=== PATIENT | male | born 1950 | race Caucasian/White ===

== ENCOUNTER 2017-12-07 12:56 | Observation (INO) | payer MEDICARE ==
[2017-12-07] MEDS ORDERED: NITROGLYCERIN OINT 1 INCH/GM PACKET TOPICAL STA (13:15)
--- NOTE | 2017-12-07 13:20 | ED ---
General Adult HPI - General Chief complaint: Chest Pain Stated complaint: Chest pressure Time Seen by Provider: 12/07/17 13:00 Source: patient, RN notes reviewed Mode of arrival: EMS Limitations: no limitations - History of Present Illness Initial comments: This a 67-year-old male who presents emergency Department with a history of hypertension high cholesterol and diabetes. Patient's also had bypass surgery. Patient comes in today with complaining of chest pain patient states it's a pressure sensation in his chest it does not radiate anywhere but it makes him diaphoretic short of breath. Patient states she's had 3 episodes of this chest pain and each episode lasted approximately 20 minutes. Patient states currently chest pain-free. Patient denies any recent fever chills or cough. Patient denies a history of smoking. Patient denies any abdominal pain patient denies any nausea vomiting or diarrhea. Patient denies any lightheadedness or dizziness. Patient denies headache patient denies numbness weakness. Leg swelling or calf pain. - Related Data Home Medications Medication Instructions Recorded Confirmed Aspirin EC [Ecotrin Low Dose] 81 mg PO DAILY 12/07/17 12/07/17 Colchicine 0.6 mg PO DAILY 12/07/17 12/07/17 Fish Oil/Dha/Epa [Fish Oil 1,200 1 cap PO DAILY 12/07/17 12/07/17 mg Fish Oil] L.acidoph,Paracmegi, B.lactis 1 cap PO DAILY 12/07/17 12/07/17 [Probiotic] Lisinopril [Zestril] 10 mg PO DAILY 12/07/17 12/07/17 Metoprolol Tartrate [Lopressor] 50 mg PO BID 12/07/17 12/07/17 Multivitamins, Thera [Multivitamin 1 tab PO DAILY 12/07/17 12/07/17 (formulary)] Omeprazole [PriLOSEC] 10 mg PO BID 12/07/17 12/07/17 Simvastatin [Zocor] 20 mg PO HS 12/07/17 12/07/17 Warfarin Sodium [Coumadin] 2.5 mg PO SUMOTUTHFR 12/07/17 12/07/17 Warfarin Sodium [Coumadin] 3.75 mg PO WESA 12/07/17 12/07/17 metFORMIN HCL 1,000 mg PO BID 12/07/17 12/07/17 valACYclovir [Valtrex] 250 mg PO DAILY 12/07/17 12/07/17 Allergies Allergy/AdvReac Type Severity Reaction Status Date / Time Iodine and Iodide Containing Allergy Rash/Hives Verified 12/07/17 13:14 Produc Review of Systems ROS Statement: Those systems with pertinent positive or pertinent negative responses have been documented in the HPI. ROS Other: All systems not noted in ROS Statement are negative. Past Medical History Past Medical History: Atrial Fibrillation, Diabetes Mellitus, GERD/Reflux, Hyperlipidemia, Hypertension Additional Past Medical History / Comment(s): Gout History of Any Multi-Drug Resistant Organisms: None Reported Past Surgical History: Cardiac Ablation, Cholecystectomy, Coronary Bypass/CABG, Orthopedic Surgery Additional Past Surgical History / Comment(s): CABG 2011 Past Psychological History: No Psychological Hx Reported Smoking Status: Never smoker Past Alcohol Use History: Occasional Past Drug Use History: None Reported General Exam - General Exam Comments Initial Comments: GENERAL: Patient is well-developed and well-nourished. Patient is nontoxic and well- hydrated and is in mild distress. ENT: Neck is soft and supple. No significant lymphadenopathy is noted. Oropharynx is clear. Moist mucous membranes. Neck has full range of motion without eliciting any pain. EYES: The sclera were anicteric and conjunctiva were pink and moist. Extraocular movements were intact and pupils were equal round and reactive to light. Eyelids were unremarkable. PULMONARY: Unlabored respirations. Good breath sounds bilaterally. No audible rales rhonchi or wheezing was noted. CARDIOVASCULAR: There is a regular rate and rhythm without any murmurs gallops or rubs. ABDOMEN: Soft and nontender with normal bowel sounds. No palpable organomegaly was noted. There is no palpable pulsatile mass. SKIN: Skin is clear with no lesions or rashes and otherwise unremarkable. NEUROLOGIC: Patient is alert and oriented x3. Cranial nerves II through XII are grossly intact. Motor and sensory are also intact. Normal speech, volume and content. Symmetrical smile. MUSCULOSKELETAL: Normal extremities with adequate strength and full range of motion. No lower extremity swelling or edema. No calf tenderness. LYMPHATICS: No significant lymphadenopathy is noted PSYCHIATRIC: Normal psychiatric evaluation. Normal interpersonal interactions appears functionally intact in deals appropriately with others. No signs of depression. No signs of anxiety. Limitations: no limitations Course Vital Signs 12/07/17 12:58 Temperature 97.9 F Pulse Rate 78 Respiratory 16 Rate Blood Pressure 177/94 O2 Sat by Pulse 97 Oximetry Medical Decision Making - Medical Decision Making EKG shows normal sinus rhythm at 80 bpm MI interval 280 QRS is 86 Q-T intervals 346 QTC is 399. Patient's EKG shows no ST segment elevation or depression or T wave abnormalities are noted. Chest x-ray shows no acute abnormality. Patient remained chest pain-free throughout the ED course. Patient was exhibiting signs and symptoms of unstable angina I did not start him on heparin because he started and Coumadin and therapeutic. I spoke with Dr. Lane she agreed to admit the patient admitted the patient wrote admitting orders. I consult cardiology. - Lab Data Result diagrams: 12/07/17 13:10 12/07/17 13:10 Lab Results 12/07/17 12/07/17 12/07/17 Range/Units 13:10 13:10 13:10 WBC 6.9 (3.8-10.6) k/uL RBC 4.86 (4.30-5.90) m/uL Hgb 15.0 (13.0-17.5) gm/dL Hct 43.2 (39.0-53.0) % MCV 88.8 (80.0-100.0) fL MCH 30.9 (25.0-35.0) pg MCHC 34.8 (31.0-37.0) g/dL RDW 13.6 (11.5-15.5) % Plt Count 210 (150-450) k/uL Neutrophils % 66 % Lymphocytes % 21 % Monocytes % 6 % Eosinophils % 4 % Basophils % 1 % Neutrophils # 4.6 (1.3-7.7) k/uL Lymphocytes # 1.4 (1.0-4.8) k/uL Monocytes # 0.4 (0-1.0) k/uL Eosinophils # 0.3 (0-0.7) k/uL Basophils # 0.1 (0-0.2) k/uL PT (9.0-12.0) sec INR (<1.2) APTT (22.0-30.0) sec Sodium 139 (137-145) mmol/L Potassium 4.6 (3.5-5.1) mmol/L Chloride 109 H (98-107) mmol/L Carbon Dioxide 19 L (22-30) mmol/L Anion Gap 11 mmol/L BUN 26 H (9-20) mg/dL Creatinine 0.80 (0.66-1.25) mg/dL Est GFR (CKD-EPI)AfAm >90 (>60 ml/min/1.73 sqM) Est GFR (CKD-EPI)NonAf >90 (>60 ml/min/1.73 sqM) Glucose 189 H (74-99) mg/dL Calcium 9.4 (8.4-10.2) mg/dL Magnesium 1.5 L (1.6-2.3) mg/dL Total Bilirubin 0.6 (0.2-1.3) mg/dL AST 30 (17-59) U/L ALT 37 (21-72) U/L Alkaline Phosphatase 49 (38-126) U/L Total Creatine Kinase 112 (55-170) U/L CK-MB (CK-2) 1.7 (0.0-2.4) ng/mL CK-MB (CK-2) Rel Index 1.5 Troponin I <0.012 (0.000-0.034) ng/mL Total Protein 6.0 L (6.3-8.2) g/dL Albumin 3.8 (3.5-5.0) g/dL 12/07/17 Range/Units 13:10 WBC (3.8-10.6) k/uL RBC (4.30-5.90) m/uL Hgb (13.0-17.5) gm/dL Hct (39.0-53.0) % MCV (80.0-100.0) fL MCH (25.0-35.0) pg MCHC (31.0-37.0) g/dL RDW (11.5-15.5) % Plt Count (150-450) k/uL Neutrophils % % Lymphocytes % % Monocytes % % Eosinophils % % Basophils % % Neutrophils # (1.3-7.7) k/uL Lymphocytes # (1.0-4.8) k/uL Monocytes # (0-1.0) k/uL Eosinophils # (0-0.7) k/uL Basophils # (0-0.2) k/uL PT 24.5 H (9.0-12.0) sec INR 2.7 H (<1.2) APTT 35.0 H (22.0-30.0) sec Sodium (137-145) mmol/L Potassium (3.5-5.1) mmol/L Chloride (98-107) mmol/L Carbon Dioxide (22-30) mmol/L Anion Gap mmol/L BUN (9-20) mg/dL Creatinine (0.66-1.25) mg/dL Est GFR (CKD-EPI)AfAm (>60 ml/min/1.73 sqM) Est GFR (CKD-EPI)NonAf (>60 ml/min/1.73 sqM) Glucose (74-99) mg/dL Calcium (8.4-10.2) mg/dL Magnesium (1.6-2.3) mg/dL Total Bilirubin (0.2-1.3) mg/dL AST (17-59) U/L ALT (21-72) U/L Alkaline Phosphatase (38-126) U/L Total Creatine Kinase (55-170) U/L CK-MB (CK-2) (0.0-2.4) ng/mL CK-MB (CK-2) Rel Index Troponin I (0.000-0.034) ng/mL Total Protein (6.3-8.2) g/dL Albumin (3.5-5.0) g/dL Disposition Clinical Impression: Unstable angina pectoris Disposition: ADMITTED IP TO THIS HOSP Referrals: Jamie Yee DO [Primary Care Provider] - 1-2 days Time of Disposition: 14:30
[2017-12-07 13:45] LABS: Basophils # (A) 0.1 k/uL (0-0.2); Basophils % (A) 1 %; Eosinophils # (A) 0.3 k/uL (0-0.7); Eosinophils % (A) 4 %; HCT 43.2 % (39.0-53.0); Lymphocytes # (A) 1.4 k/uL (1.0-4.8); Lymphocytes % (A) 21 %; MCH 30.9 pg (25.0-35.0); MCHC 34.8 g/dL (31.0-37.0); MCV 88.8 fL (80.0-100.0); Mean Platelet Volume 7.7; Monocytes # (A) 0.4 k/uL (0-1.0); Monocytes % (A) 6 %; Neutrophils # (A) 4.6 k/uL (1.3-7.7); Neutrophils % (A) 66 %; Platelet Count 210 k/uL (150-450); RBC 4.86 m/uL (4.30-5.90); RDW 13.6 % (11.5-15.5); WBC 6.9 k/uL (3.8-10.6)
--- NOTE | 2017-12-07 13:47 | XR ---
EXAMINATION TYPE: XR chest 2V DATE OF EXAM: 12/07/2017 HISTORY: Chest Pain. REFERENCE: NONE. FINDINGS: The heart is mildly enlarged. Lungs are clear. Pleural spaces are clear. IMPRESSION: MILD CARDIOMEGALY.
[2017-12-07 13:57] LABS: ALT 37 U/L (21-72); AST 30 U/L (17-59); Albumin 3.8 g/dL (3.5-5.0); Alkaline Phosphatase 49 U/L (38-126); Anion Gap 11 mmol/L; Blood Urea Nitrogen 26 mg/dL (9-20); Calcium 9.4 mg/dL (8.4-10.2); Carbon Dioxide 19 mmol/L (22-30); Chloride 109 mmol/L (98-107); Glucose 189 mg/dL (74-99); Magnesium 1.5 mg/dL (1.6-2.3); Potassium 4.6 mmol/L (3.5-5.1); Sodium 139 mmol/L (137-145); Total Bilirubin 0.6 mg/dL (0.2-1.3)
[2017-12-07 13:58] LABS: INR 2.7 (<1.2); Prothrombin Time 24.5 sec (9.0-12.0)
[2017-12-07 14:06] LABS: Creatine Kinase 112 U/L (55-170)
[2017-12-07] MEDS ORDERED: MAGNESIUM SULFATE-D5W PMX 1 GM in DEXTROSE/WATER 1 100ML.BAG IVPB ONE (14:07)
[2017-12-07 14:19] LABS: Creatine Kinase MB 1.7 ng/mL (0.0-2.4); Troponin I <0.012 ng/mL (0.000-0.034)
[2017-12-07] MEDS ORDERED: NITROGLYCERIN SL TABS 0.4 MG TAB SUBLINGUAL PRN (14:31)
[2017-12-07 16:59] VITALS: BMI 35.1
[2017-12-07 17:04] LABS: Glucose,Whole Blood 154 mg/dL (75-99)
[2017-12-07] MEDS: NITROGLYCERIN OINT 1 INCH/GM PACKET TOPICAL SCH (17:06)
[2017-12-07] MEDS ORDERED: MORPHINE SULFATE 2 MG/ML SYRINGE IVP PRN (17:51)
[2017-12-07] MEDS ORDERED: ACETAMINOPHEN TAB 325 MG TAB PO PRN (17:51)
[2017-12-07] MEDS ORDERED: WARFARIN 2.5 MG TAB PO SCH (18:00)
--- NOTE | 2017-12-07 18:04 | P.HPIM ---
History of Present Illness H&P Date: 12/07/17 Chief Complaint: Chest pain 67-year-old male with past medical history of CAD status post CABG in November 2011, DM, hypertension, hyperlipidemia, atrial fibrillation initially presented to the hospital this morning for chest pain. Pressure reports waking up this morning with pressure-like chest pain, 2 out of 10 in severity associated with sweating and lightheadedness. Patient reports the chest pain resolving in 20 minutes. He was able to eat breakfast, but soon started experiencing a recurrence of this pain that lasted for 20-30 minutes. Patient reports a similar incident 2 weeks ago. At this time, his chest pain was associated with palpitations. He was able to go to [facility] where he was found to be in A. fib with RVR with a heart rate of 150. Patient reports undergoing a stress test at that time which was negative. Patient currently denies any dizziness, headache, nausea, vomiting, fever, cough, shortness of breath, palpitations, changes in urination or bowel habits. Patient denies smoking. In the ED patient had a troponin less than 0.01, INR of 2.7, EKG showing normal sinus rhythm. Patient is admitted for further workup and management of his chest pain. Review of Systems All systems: negative Past Medical History Past Medical History: Atrial Fibrillation, Diabetes Mellitus, GERD/Reflux, Hyperlipidemia, Hypertension Additional Past Medical History / Comment(s): Gout History of Any Multi-Drug Resistant Organisms: None Reported Past Surgical History: Cardiac Ablation, Cholecystectomy, Coronary Bypass/CABG, Orthopedic Surgery Additional Past Surgical History / Comment(s): CABG 2011, left knee replacement , ganglion cyst removed right wrist, heal spurs removed Past Anesthesia/Blood Transfusion Reactions: No Reported Reaction Past Psychological History: No Psychological Hx Reported Smoking Status: Never smoker Past Alcohol Use History: Occasional Past Drug Use History: None Reported - Past Family History Father Family Medical History: No Reported History Medications and Allergies Home Medications Medication Instructions Recorded Confirmed Type Aspirin EC [Ecotrin Low Dose] 81 mg PO DAILY 12/07/17 12/07/17 History Colchicine 0.6 mg PO DAILY 12/07/17 12/07/17 History Fish Oil/Dha/Epa [Fish Oil 1,200 1 cap PO DAILY 12/07/17 12/07/17 History mg Fish Oil] L.acidoph,Paracasei, B.lactis 1 cap PO DAILY 12/07/17 12/07/17 History [Probiotic] Lisinopril [Zestril] 10 mg PO DAILY 12/07/17 12/07/17 History Metoprolol Tartrate [Lopressor] 50 mg PO BID 12/07/17 12/07/17 History Multivitamins, Thera [Multivitamin 1 tab PO DAILY 12/07/17 12/07/17 History (formulary)] Omeprazole [PriLOSEC] 10 mg PO BID 12/07/17 12/07/17 History Simvastatin [Zocor] 20 mg PO HS 12/07/17 12/07/17 History Warfarin Sodium [Coumadin] 2.5 mg PO SUMOTUTHFR 12/07/17 12/07/17 History Warfarin Sodium [Coumadin] 3.75 mg PO WESA 12/07/17 12/07/17 History metFORMIN HCL 1,000 mg PO BID 12/07/17 12/07/17 History valACYclovir [Valtrex] 250 mg PO DAILY 12/07/17 12/07/17 History Allergies Allergy/AdvReac Type Severity Reaction Status Date / Time Iodine and Iodide Containing Allergy Rash/Hives Verified 12/07/17 13:14 Produc Physical Exam Vitals: Vital Signs Temp Pulse Pulse Resp BP BP Pulse Ox 12/07/17 16:20 97.5 F L 79 18 100/65 95 12/07/17 16:09 79 18 106/56 100 12/07/17 14:56 78 16 121/61 94 L 12/07/17 12:58 97.9 F 78 16 177/94 97 Intake and Output 12/07/17 12/07/17 12/07/17 06:59 14:59 22:59 Other: Weight 115.666 kg 117.5 kg General: non toxic, no distress, appears at stated age Derm: warm, dry Head: atraumatic, normocephalic, symmetric Eyes: EOMI, no lid lag, anicteric sclera Mouth: no lip lesion, mucus membranes moist Cardiovascular: S1S2 reg, no murmur, positive posterior tibial pulse bilateral, Lungs: CTA bilateral, no rhonchi, no rales , no accessory muscle use Abdominal: soft, nontender to palpation, no guarding, no appreciable organomegaly Ext: no gross muscle atrophy, no edema, no contractures Neuro: CN II-XI grossly intact, no focal neuro deficits Psych: Alert, oriented, appropriate affect Results CBC & Chem 7: 12/07/17 13:10 12/07/17 13:10 Labs: Abnormal Lab Results - Last 24 Hours (Table) 12/07/17 12/07/17 12/07/17 Range/Units 13:10 13:10 17:00 PT 24.5 H (9.0-12.0) sec INR 2.7 H (<1.2) APTT 35.0 H (22.0-30.0) sec Chloride 109 H (98-107) mmol/L Carbon Dioxide 19 L (22-30) mmol/L BUN 26 H (9-20) mg/dL Glucose 189 H (74-99) mg/dL POC Glucose (mg/dL) 154 H (75-99) mg/dL Magnesium 1.5 L (1.6-2.3) mg/dL Total Protein 6.0 L (6.3-8.2) g/dL Chest x-ray: report reviewed Thrombosis Risk Factor Assmnt - Choose All That Apply Any of the Below Risk Factors Present?: Yes Each Factor Represents 1 point: Obesity (BMI >25) Other Risk Factors: Yes Each Risk Factor Represents 2 Points: Age 61-74 years Thrombosis Risk Factor Assessment Total Risk Factor Score: 3 Thrombosis Risk Factor Assessment Level: Moderate Risk Assessment and Plan Assessment: Assessment and plan Acute Chest pain: Given history of CAD, high risk for ACS. Trop < 0.01 x 1, EKG showing NSR. CXR showing mild cardiomegaly. [employer] to obtain records from [facility]. Tylenol 650 mg PO Q6, Nitrostat, Morphine 2 mg IV Q4 PRN for pain. Telemetry monitoring. FU Trop/EKG to r/o ACS. FU Cardiology for possible Stress/Angiogram. Chronic CAD: s/p CABG. Continue ASA 81 mg PO QD, Simvastatin 20 mg PO QHS. Cardiac diet. FU A1c, Lipid panel. DM: POC glucose 189. Start ISS. Accuchecks QID. Diabetic diet. Hypoglycemic precautions. FU A1c. HTN: BP 100/65. Continue Lisinopril 10 mg PO QD, Metoprolol 50 mg PO BID. Monitor vitals, adjust medications as necessary. A-Fib: AC with Coumadin 2.5 mg [id number] and 3.75 mg QWeSa. Rate control with Metoprolol 50 mg PO BID. Telemetry monitoring. Gout: Stable. Continue Colchicine 0.6 mg PO QD.
[2017-12-07 19:49] LABS: Creatine Kinase 93 U/L (55-170)
[2017-12-07 20:03] LABS: Creatine Kinase MB 1.6 ng/mL (0.0-2.4); Troponin I <0.012 ng/mL (0.000-0.034)
[2017-12-07] MEDS: METOPROLOL TARTRATE 50 MG TAB PO SCH (20:54)
[2017-12-07] MEDS ORDERED: ATORVASTATIN 10 MG TAB PO SCH (21:00)
[2017-12-07 21:17] LABS: Glucose,Whole Blood 164 mg/dL (75-99)
[2017-12-07 23:53] LABS: Cholesterol 153 mg/dL (<200); HDL Cholesterol 27 mg/dL (40-60)
[2017-12-08 00:04] LABS: Triglycerides 606 mg/dL (<150)
[2017-12-08] MEDS: NITROGLYCERIN OINT 1 INCH/GM PACKET TOPICAL SCH ×3 (00:21→11:59)
[2017-12-08 01:38] LABS: Creatine Kinase 72 U/L (55-170)
[2017-12-08 01:52] LABS: Creatine Kinase MB 1.3 ng/mL (0.0-2.4); Troponin I <0.012 ng/mL (0.000-0.034)
[2017-12-08 07:04] LABS: Glucose,Whole Blood 125 mg/dL (75-99)
[2017-12-08] MEDS ORDERED: INSULIN ASPART 100 UNIT/ML 1 ML 10 ML VIAL SQ SCH (07:30)
--- NOTE | 2017-12-08 08:00 | P.CRDCN ---
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 The patient was in his usual state of health until yesterday when he was sitting home watching TV and started experiencing chest discomfort, in the mid of the chest, as a pressure on the chest, without any radiation, and without any associated symptoms of shortness of breath, sweating, dizziness or lightheadedness, or syncope. The episode lasted for 20 minutes. He did develop 2 more episodes with similar characteristics. At that point he decided to come to the emergency room. The patient does live in [facility] and currently he is in [place] where he has a summerhouse. The EKG showed sinus rhythm with a Q wave inferiorly. The cardiac enzymes were checked and came in to be unremarkable. The patient stated that about a week ago he presented to [facility] where at that point the patient underwent a stress test. We are in process of getting the record. Meanwhile I did advise the patient to move and get up and around to see if he will develop any chest discomfort. Past Medical History Past Medical History: Atrial Fibrillation, Diabetes Mellitus, GERD/Reflux, Hyperlipidemia, Hypertension Additional Past Medical History / Comment(s): Gout History of Any Multi-Drug Resistant Organisms: None Reported Past Surgical History: Cardiac Ablation, Cholecystectomy, Coronary Bypass/CABG, Orthopedic Surgery Additional Past Surgical History / Comment(s): CABG 2011, left knee replacement , ganglion cyst removed right wrist, heal spurs removed Past Anesthesia/Blood Transfusion Reactions: No Reported Reaction Past Psychological History: No Psychological Hx Reported Smoking Status: Never smoker Past Alcohol Use History: Occasional Past Drug Use History: None Reported - Past Family History Father Family Medical History: No Reported History Medications and Allergies Home Medications Medication Instructions Recorded Confirmed Type Aspirin EC [Ecotrin Low Dose] 81 mg PO DAILY 12/07/17 12/07/17 History Colchicine 0.6 mg PO DAILY 12/07/17 12/07/17 History Fish Oil/Dha/Epa [Fish Oil 1,200 1 cap PO DAILY 12/07/17 12/07/17 History mg Fish Oil] L.acidoph,Paracasei, B.lactis 1 cap PO DAILY 12/07/17 12/07/17 History [Probiotic] Lisinopril [Zestril] 10 mg PO DAILY 12/07/17 12/07/17 History Metoprolol Tartrate [Lopressor] 50 mg PO BID 12/07/17 12/07/17 History Multivitamins, Thera [Multivitamin 1 tab PO DAILY 12/07/17 12/07/17 History (formulary)] Omeprazole [PriLOSEC] 10 mg PO BID 12/07/17 12/07/17 History Simvastatin [Zocor] 20 mg PO HS 12/07/17 12/07/17 History Warfarin Sodium [Coumadin] 2.5 mg PO SUMOTUTHFR 12/07/17 12/07/17 History Warfarin Sodium [Coumadin] 3.75 mg PO WESA 12/07/17 12/07/17 History metFORMIN HCL 1,000 mg PO BID 12/07/17 12/07/17 History valACYclovir [Valtrex] 250 mg PO DAILY 12/07/17 12/07/17 History Allergies Allergy/AdvReac Type Severity Reaction Status Date / Time Iodine and Iodide Containing Allergy Rash/Hives Verified 12/07/17 13:14 Produc Physical Exam Vitals: Vital Signs Temp Pulse Pulse Resp BP BP Pulse Ox 12/08/17 04:16 97.5 F L 71 16 116/73 97 12/08/17 04:00 16 12/08/17 00:00 18 12/07/17 23:30 98.2 F 84 18 136/60 96 12/07/17 20:00 18 12/07/17 18:55 97.4 F L 87 18 112/62 94 L 12/07/17 16:20 97.5 F L 79 18 100/65 95 12/07/17 16:09 79 18 106/56 100 12/07/17 14:56 78 16 121/61 94 L 12/07/17 12:58 97.9 F 78 16 177/94 97 Intake and Output 12/07/17 12/08/17 12/08/17 22:59 06:59 14:59 Other: Voiding Method Toilet Toilet # Voids 2 2 Weight 117.5 kg - Constitutional General appearance: no acute distress - Respiratory Respiratory: bilateral: CTA - Cardiovascular Rhythm: regular Heart sounds: normal: S1, S2 Results 12/07/17 13:10 12/07/17 13:10 Cardiac Enzymes 12/07/17 12/07/17 12/07/17 Range/Units 13:10 13:10 19:05 AST 30 (17-59) U/L CK-MB (CK-2) 1.7 1.6 (0.0-2.4) ng/mL Troponin I <0.012 <0.012 (0.000-0.034) ng/mL 12/08/17 Range/Units 00:46 AST (17-59) U/L CK-MB (CK-2) 1.3 (0.0-2.4) ng/mL Troponin I <0.012 (0.000-0.034) ng/mL Coagulation 12/07/17 Range/Units 13:10 PT 24.5 H (9.0-12.0) sec APTT 35.0 H (22.0-30.0) sec Lipids 12/07/17 Range/Units 13:10 Triglycerides 606 H (<150) mg/dL Cholesterol 153 (<200) mg/dL HDL Cholesterol 27 L (40-60) mg/dL CBC 12/07/17 Range/Units 13:10 WBC 6.9 (3.8-10.6) k/uL RBC 4.86 (4.30-5.90) m/uL Hgb 15.0 (13.0-17.5) gm/dL Hct 43.2 (39.0-53.0) % Plt Count 210 (150-450) k/uL Comprehensive Metabolic Panel 12/07/17 Range/Units 13:10 Sodium 139 (137-145) mmol/L Potassium 4.6 (3.5-5.1) mmol/L Chloride 109 H (98-107) mmol/L Carbon Dioxide 19 L (22-30) mmol/L BUN 26 H (9-20) mg/dL Creatinine 0.80 (0.66-1.25) mg/dL Glucose 189 H (74-99) mg/dL Calcium 9.4 (8.4-10.2) mg/dL AST 30 (17-59) U/L ALT 37 (21-72) U/L Alkaline Phosphatase 49 (38-126) U/L Total Protein 6.0 L (6.3-8.2) g/dL Albumin 3.8 (3.5-5.0) g/dL Current Medications Generic Name Dose Route Start Last Admin Trade Name Freq PRN Reason Stop Dose Admin Acetaminophen 650 mg 12/07/17 17:51 Tylenol Tab PO Q6HR PRN Fever and/ or MILD Pain Aspirin 81 mg 12/08/17 09:00 Aspirin PO DAILY [facility] Atorvastatin Calcium 10 mg 12/07/17 21:00 12/07/17 20:54 Lipitor PO 10 mg HS [facility] Administration Colchicine 0.6 mg 12/08/17 09:00 Colcrys PO DAILY [facility] Insulin Aspart 0 unit 12/08/17 07:30 Novolog SQ AC-TID [facility] Protocol Lisinopril 10 mg 12/08/17 09:00 Zestril PO DAILY [facility] Metoprolol Tartrate 50 mg 12/07/17 21:00 12/07/17 20:54 Lopressor PO 50 mg BID [facility] Administration Morphine Sulfate 2 mg 12/07/17 17:51 Morphine Sulfate (Inj) IVP Q6H PRN MODERATE Pain/Discomfort Nitroglycerin 1 inch 12/07/17 18:00 12/08/17 05:19 Nitro-Bid Oint TOPICAL Not Given Q6HR [facility] Nitroglycerin 0.4 mg 12/07/17 14:31 Nitrostat SUBLINGUAL Q5M PRN Chest Pain Warfarin Sodium 2.5 mg 12/07/17 18:00 12/07/17 20:54 Coumadin PO 2.5 mg SUMOTUTHFR [facility] Administration Warfarin Sodium 3.75 mg 12/10/17 17:48 Coumadin PO WESA [facility] Intake and Output 12/07/17 12/08/17 12/08/17 22:59 06:59 14:59 Other: Voiding Method Toilet Toilet # Voids 2 2 Weight 117.5 kg 12/07/17 13:10 12/07/17 13:10 Assessment and Plan Assessment: Assessment #1 intermittent episodes of chest discomfort #2 known CAD and status post CABG in 2011 with one bypass. The details are unknown at this point #3 dyslipidemia #4 hypertension #5 paroxysmal A. fib Plan #1 the patient was ruled out for acute coronary event #2 obtain the result of the stress test from [facility]. #3 get the patient up and around to see if he will develop any more episodes of chest discomfort #4 follow-up with the patient. Thank you for allowing us participate in his care
--- NOTE | 2017-12-08 08:22 | P.PN ---
Subjective Progress Note Date: 12/08/17 Principal diagnosis: Chest pain Patient was seen and examined. No acute events overnight. Patient denies any dizziness, chest pain, SOB, palpitations since admission. States he was able to walk around the unit without any episodes of dizziness, flushing or palpitations. Troponin have been negative 3. Vital signs stable. EKG shows normal sinus rhythm with Q waves. Objective - Vital Signs Vital signs: Vital Signs Temp 97.5 F L 12/08/17 04:16 Pulse 71 12/08/17 04:16 Resp 16 12/08/17 04:16 BP 116/73 12/08/17 04:16 Pulse Ox 97 12/08/17 04:16 Intake & Output 12/07/17 12/08/17 12/08/17 18:59 06:59 18:59 Weight 117.5 kg Other: Voiding Method Toilet # Voids 2 - Exam General: non toxic, no distress, appears at stated age Derm: warm, dry Head: atraumatic, normocephalic, symmetric Eyes: EOMI, no lid lag, anicteric sclera Mouth: no lip lesion, mucus membranes moist Cardiovascular: S1S2 reg, no murmur rubs or gallops. Lungs: CTA bilateral, no rhonchi, no rales , no accessory muscle use Abdominal: soft, nontender to palpation, no guarding, no appreciable organomegaly Ext: no gross muscle atrophy, no edema, no contractures Neuro: CN II-XI grossly intact, no focal neuro deficits Psych: Alert, oriented, appropriate affect - Labs CBC & Chem 7: 12/07/17 13:10 12/07/17 13:10 Labs: Abnormal Lab Results - Last 24 Hours (Table) 12/07/17 12/07/17 12/07/17 Range/Units 13:10 13:10 13:10 PT 24.5 H (9.0-12.0) sec INR 2.7 H (<1.2) APTT 35.0 H (22.0-30.0) sec Chloride 109 H (98-107) mmol/L Carbon Dioxide 19 L (22-30) mmol/L BUN 26 H (9-20) mg/dL Glucose 189 H (74-99) mg/dL POC Glucose (mg/dL) (75-99) mg/dL Magnesium 1.5 L (1.6-2.3) mg/dL Total Protein 6.0 L (6.3-8.2) g/dL Triglycerides 606 H (<150) mg/dL HDL Cholesterol 27 L (40-60) mg/dL 12/07/17 12/07/17 12/08/17 Range/Units 17:00 21:15 07:01 PT (9.0-12.0) sec INR (<1.2) APTT (22.0-30.0) sec Chloride (98-107) mmol/L Carbon Dioxide (22-30) mmol/L BUN (9-20) mg/dL Glucose (74-99) mg/dL POC Glucose (mg/dL) 154 H 164 H 125 H (75-99) mg/dL Magnesium (1.6-2.3) mg/dL Total Protein (6.3-8.2) g/dL Triglycerides (<150) mg/dL HDL Cholesterol (40-60) mg/dL Assessment and Plan Assessment: Assessment and plan Acute 1. Chest pain: High risk. ACS ruled out - Trop < 0.01 x 3, EKG showing NSR. CXR showing mild cardiomegaly. DIRECTOR CLIENT to obtain records from [facility]. Tylenol 650 mg PO Q6, Nitrostat, Morphine 2 mg IV Q4 PRN for pain. Telemetry monitoring. FU Cardiology Chronic 2. Hypertriglyceridemia: TG 606. Patient asymptomatic. Continue Simvastatin 20 mg PO QHS. Cardiac diet. 3. CAD: s/p CABG. Continue ASA 81 mg PO QD, Simvastatin 20 mg PO QHS. Cardiac diet. 4. DM: POC glucose 125. Start ISS. Accuchecks QID. Low carb diet. Hypoglycemic precautions. FU A1c. 5. HTN: BP 116/73. Continue Lisinopril 10 mg PO QD, Metoprolol 50 mg PO BID. Monitor vitals, adjust medications as necessary. 6. A-Fib: AC with Coumadin 2.5 mg [id number] and 3.75 mg QWeSa. Rate control with Metoprolol 50 mg PO BID. INR 2.7. Keep K > 4 and Mg > 2. Telemetry monitoring. FU Coags 7. Gout: Stable. Continue Colchicine 0.6 mg PO QD. ACS has been ruled out. We are waiting on the results of the stress test from [facility] for further recommendations on management. I will resume his diet in the meantime.
[2017-12-08 08:33] VITALS: RESP 18
[2017-12-08 08:34] LABS: Anion Gap 7 mmol/L; Blood Urea Nitrogen 19 mg/dL (9-20); Calcium 9.4 mg/dL (8.4-10.2); Carbon Dioxide 27 mmol/L (22-30); Chloride 107 mmol/L (98-107); Glucose 146 mg/dL (74-99); Magnesium 1.7 mg/dL (1.6-2.3); Potassium 4.9 mmol/L (3.5-5.1); Sodium 141 mmol/L (137-145)
[2017-12-08 08:35] LABS: Prothrombin Time 26.9 sec (9.0-12.0)
[2017-12-08] MEDS ORDERED: COLCHICINE 0.6 MG EACH PO SCH (09:00)
[2017-12-08] MEDS ORDERED: LISINOPRIL 10 MG TAB PO SCH (09:00)
[2017-12-08] MEDS ORDERED: ASPIRIN 325 MG TAB PO SCH (09:00)
[2017-12-08] MEDS ORDERED: ASPIRIN 81 MG PO SCH (09:00)
[2017-12-08] MEDS: METOPROLOL TARTRATE 50 MG TAB PO SCH (10:15)
[2017-12-08 12:02] VITALS: BP 137/89; PULSE 79; TEMP 98.2
[2017-12-08 17:15] LABS: Hemoglobin A1C 7.9 % (4.0-6.0)
[2017-12-10] MEDS ORDERED: WARFARIN 2.5 MG TAB PO SCH (17:48)
== END 2017-12-08 11:57 | disposition home or self-care (01) ==
LOC: EC 12:56 → 3OBS 14:31
PROVIDERS: ADMIT Internal Medicine; ATTEND Internal Medicine
DX: R07.89 Other chest pain (principal); R61 Generalized hyperhidrosis; R06.02 Shortness of breath; R00.2 Palpitations; R42 Dizziness and giddiness; E11.9 Type 2 diabetes mellitus without complications; E78.5 Hyperlipidemia, unspecified; E78.1 Pure hyperglyceridemia; I25.10 Atherosclerotic heart disease of native coronary artery without angina pectoris; I11.9 Hypertensive heart disease without heart failure; I48.0 Paroxysmal atrial fibrillation; Z95.1 Presence of aortocoronary bypass graft; Z79.82 Long term (current) use of aspirin; Z79.899 Other long term (current) drug therapy; Z79.01 Long term (current) use of anticoagulants; Z79.84 Long term (current) use of oral hypoglycemic drugs; Z91.048 Other nonmedicinal substance allergy status; K21.9 Gastro-esophageal reflux disease without esophagitis; M10.9 Gout, unspecified; Z90.49 Acquired absence of other specified parts of digestive tract; E66.9 Obesity, unspecified; Z68.35 Body mass index [BMI] 35.0-35.9, adult
CPT/HCPCS: 36415; 71046; 80048; 80053; 80061; 82550; 82553; 83036; 83735; 84484; 85025; 85610; 85730; 93005; 94760; 96365; 99285